=== PATIENT | male | born 2000 | race Caucasian/White ===

== ENCOUNTER 2025-04-21 08:21 | Emergency (ER) | payer OTHER ==
[~2025-04-21] VITALS: Ht 180.3 cm; Wt 81.9 kg
[2025-04-21 10:02] LABS: BASO # 0.1 10^3/uL (0.0-0.2); BASO % 0.2 % (0.0-1.0); EOS # 0.0 10^3/uL (0.0-0.5); EOS % 0.1 % (0.0-3.0); LYMPH # 0.8 10^3/uL (1.5-5.0); LYMPH % 3.9 % (24.0-44.0); MONO # 1.3 10^3/uL (0.0-0.8); MONO % 6.4 % (2.0-8.0); NEUTROPHILS # 18.6 10^3/uL (1.5-8.5); NEUTROPHILS % 88.8 % (36.0-66.0); PLATELET COUNT, AUTOMATED 290 10^3/uL (150-450)
[2025-04-21 10:22] LABS: ALT/SGPT 16 U/L (7.0-40); AST/SGOT 12 U/L (<34); CALCIUM LEVEL 9.1 MG/DL (8.5-10.1); CARBON DIOXIDE LEVEL 28 MMOL/L (20-31); CHLORIDE LEVEL 98 MMOL/L (98-107); CREATININE FOR GFR 0.78 MG/DL (0.70-1.30); GLOMERULAR FILTRATION RATE > 90.0 (>60); POTASSIUM SERUM 4.6 MMOL/L (3.5-5.1); SODIUM LEVEL 137 MMOL/L (136-145)
[2025-04-21] MEDS: NS (Normal Saline) 0.9% 1,000 ML IV ONE (11:50)
[2025-04-21 11:58] LABS: PLATELET COUNT, AUTOMATED 304 10^3/uL (150-450)
[2025-04-21] MEDS ORDERED: HOME MED LIST COMPLETE! XX SCH (12:20)
[2025-04-21 14:08] VITALS: BP 137/66; TEMP 100; O2SAT 100
== END 2025-04-21 14:15 | disposition home or self-care (01) ==
LOC: EDBD 08:21 → M ED 08:21
DX: R55 Syncope and collapse (principal); D72.829 Elevated white blood cell count, unspecified